=== PATIENT | female | born 1935 | race Caucasian/White ===

== ENCOUNTER 2018-10-16 09:48 | Outpatient (CLI) | payer MEDICARE, BC ==
[~2018-10-16] VITALS: Ht 165.1 cm; Wt 55.3 kg
[~2018-10-16 09:48] MED LIST: CALC-729 PO; NEBI10TA4 PO; NORCO10T PO; OMEP-84 PO; QUIN10TA PO; TIOT18CA7 IH
[2018-10-16] MEDS ORDERED: albuterol 2.5 MG/3 ML nebule NEB ONE (10:50)
[2018-10-16 12:59] LABS: TOTAL HEMOGLOBIN 12.3 G/dl (12.0-16.0)
== END 2018-10-16 23:59 | disposition home or self-care (01) ==
LOC: RT 09:48
PROVIDERS: ATTEND Internal Medicine Pulmonary Disease
DX: J44.9 Chronic obstructive pulmonary disease, unspecified (principal); J98.4 Other disorders of lung; I10 Essential (primary) hypertension; Z87.891 Personal history of nicotine dependence
CPT/HCPCS: 85018; 94060; 94727; 94729; 94760